=== PATIENT | female | born 1955 | race Caucasian/White ===

== ENCOUNTER 2020-08-28 15:42 | Emergency (ER) | payer OTHER ==
[2020-08-28] MEDS ORDERED: DICLOFENAC SODI75 MG PO (17:53)
== END 2020-08-28 18:07 | disposition home or self-care (01) ==
LOC: FER 15:42
DX: M79.661 Pain in right lower leg (principal); R26.2 Difficulty in walking, not elsewhere classified; Z85.3 Personal history of malignant neoplasm of breast; Z88.0 Allergy status to penicillin; Z90.10 Acquired absence of unspecified breast and nipple
CPT/HCPCS: 93971